=== PATIENT | female | born 1985 | race Caucasian/White ===

== ENCOUNTER 2020-10-09 22:33 | Inpatient (IN) | payer BC ==
[2020-10-10] MEDS ORDERED: SODIUM CHLORIDE 0.9% 500 ML INFUS.BAG IV ONE (01:44)
[2020-10-10] MEDS ORDERED: ACETAMINOPHEN 1000 MG/100 ML VIAL (NON FORMULARY) IVPB ONE (01:44)
[2020-10-10] MEDS ORDERED: MAG HYDROX/AL HYDROX/SIMETH 30 ML UNIT-DOSE CUP PO ONE (01:45)
[2020-10-10] MEDS ORDERED: ACETAMINOPHEN INJECTION 100 ML IVPB ONE (02:43)
[2020-10-10] MEDS ORDERED: MAG HYDROX/AL HYDROX/SIMETH 30 ML UNIT-DOSE CUP ONE (02:43)
[2020-10-10 02:49] LABS: BASO % 0.4 % (0-2.0); EOS % 0.3 % (0-4.5); HEMATOCRIT 42.4 % (32.4-45.2); MCH 28.5 pg (25.7-33.7); MEAN CELL VOLUME 86.3 fl (80-96); MEAN PLT VOLUME 7.3 fl (7.5-11.1); MONO % 7.7 % (3.8-10.2); NEUT % 82.6 % (42.8-82.8); PLATELET COUNT 378 10^3/uL (134-434); RBC 4.92 M/mm3 (3.60-5.2); RDW 14.1 % (11.6-15.6); WHITE BLOOD COUNT 9.9 K/mm3 (4.0-10.0)
[2020-10-10 03:06] LABS: CALCIUM 8.8 mg/dL (8.5-10.1)
[2020-10-10 03:07] LABS: ALBUMIN 3.9 g/dl (3.4-5.0); BLOOD UREA NITROGEN 9.5 mg/dL (7-18)
[2020-10-10 03:12] LABS: BILIRUBIN,TOTAL 0.5 mg/dL (0.2-1); TOT PROT 8.3 g/dl (6.4-8.2)
[2020-10-10 03:23] LABS: CREATININE 0.7 mg/dL (0.55-1.3)
[2020-10-10 03:52] LABS: PH,URINE 5.5 (5.0-8.0); URINE APPEARANCE CLOUDY; URINE BILIRUBIN 1+ (NEGATIVE); URINE COLOR DK YELLOW; URINE GLUCOSE (UA) NEGATIVE (NEGATIVE); URINE KETONE 4+ (NEGATIVE); URINE LEUK ESTERASE NEGATIVE (NEGATIVE); URINE NITRITE NEGATIVE (NEGATIVE); URINE PROTEIN TRACE (NEGATIVE)
[2020-10-10 03:54] LABS: EPI CELLS >36 /uL (0-25.1); HYALINE CASTS 5 /uL (0-3.1); URINE BACTERIA 634 /uL (0-1359); URINE RBC 12 /uL (0-23.9); URINE WBC 38 /uL (0-25.8)
[2020-10-10] MEDS ORDERED: ONDANSETRON 4 MG/2 ML VIAL IVPUSH PRN (10:01)
[2020-10-10] MEDS: SODIUM CHLORIDE 1,000 ML IV SCH ×2 (10:28→17:00)
[2020-10-10] MEDS: ENOXAPARIN NA (PORCINE) 40 MG/0.4 ML DISP.SYRIN SQ SCH (10:28)
[2020-10-10 12:51] VITALS: BMI 85.2
[2020-10-10] MEDS ORDERED: ACETAMINOPHEN 1000 MG/100 ML VIAL (NON FORMULARY) IVPB PRN (12:58)
[2020-10-10] MEDS: SPIRONOLACTONE 25 MG TABLET PO SCH (15:07)
[2020-10-10] MEDS ORDERED: cefTRIAXone SODIUM 1 GM VIAL ONE (20:14)
[2020-10-10] MEDS ORDERED: DEXTROSE 5%-WATER - 50 ML IVPB ONE (20:14)
[2020-10-10] MEDS: CEFTRIAXONE 1 GM in DEXTROSE 5%-WATER - 50 ML IVPB SCH (20:54)
[2020-10-11] MEDS: SODIUM CHLORIDE 1,000 ML IV SCH ×3 (06:48→23:36)
[2020-10-11 09:46] LABS: BASO % 0.2 % (0-2.0); EOS % 0.4 % (0-4.5); HEMATOCRIT 38.3 % (32.4-45.2); HEMOGLOBIN 12.4 GM/dL (10.7-15.3); LYMPH % 14.5 % (8-40); MCH 28.1 pg (25.7-33.7); MCHC 32.3 g/dl (32.0-36.0); MEAN CELL VOLUME 86.9 fl (80-96); MEAN PLT VOLUME 7.9 fl (7.5-11.1); MONO % 14.4 % (3.8-10.2); NEUT % 70.5 % (42.8-82.8); PLATELET COUNT 322 10^3/uL (134-434); RBC 4.41 M/mm3 (3.60-5.2); RDW 13.7 % (11.6-15.6); WHITE BLOOD COUNT 6.9 K/mm3 (4.0-10.0)
[2020-10-11 10:30] LABS: BLOOD UREA NITROGEN 3.1 mg/dL (7-18); CALCIUM 7.6 mg/dL (8.5-10.1)
[2020-10-11 10:31] LABS: PHOSPHOROUS 2.2 mg/dL (2.5-4.9)
[2020-10-11 10:32] LABS: BILIRUBIN,TOTAL 0.5 mg/dL (0.2-1); TOT PROT 6.3 g/dl (6.4-8.2)
[2020-10-11 10:33] LABS: CREATININE 0.5 mg/dL (0.55-1.3)
[2020-10-11] MEDS ORDERED: cefTRIAXone SODIUM 1 GM VIAL ONE (11:19)
[2020-10-11] MEDS ORDERED: DEXTROSE 5%-WATER - 50 ML IVPB ONE (11:19)
[2020-10-11] MEDS: SPIRONOLACTONE 25 MG TABLET PO SCH ×2 (11:22→13:09)
[2020-10-11] MEDS: CEFTRIAXONE 1 GM in DEXTROSE 5%-WATER - 50 ML IVPB SCH (11:22)
[2020-10-11] MEDS: ENOXAPARIN NA (PORCINE) 40 MG/0.4 ML DISP.SYRIN SQ SCH (11:22)
[2020-10-12] MEDS: ONDANSETRON 4 MG/2 ML VIAL IVPUSH PRN ×2 (04:26→09:53)
[2020-10-12 09:26] LABS: BASO % 0.2 % (0-2.0); EOS % 0.3 % (0-4.5); HEMATOCRIT 38.8 % (32.4-45.2); HEMOGLOBIN 12.4 GM/dL (10.7-15.3); LYMPH % 20.1 % (8-40); MCHC 31.9 g/dl (32.0-36.0); MEAN CELL VOLUME 87.7 fl (80-96); MEAN PLT VOLUME 7.8 fl (7.5-11.1); MONO % 9.2 % (3.8-10.2); NEUT % 70.2 % (42.8-82.8); PLATELET COUNT 323 10^3/uL (134-434); RBC 4.43 M/mm3 (3.60-5.2); RDW 13.6 % (11.6-15.6); WHITE BLOOD COUNT 7.2 K/mm3 (4.0-10.0)
[2020-10-12] MEDS ORDERED: DEXTROSE 5%-WATER - 50 ML IVPB ONE (09:38)
[2020-10-12] MEDS ORDERED: cefTRIAXone SODIUM 1 GM VIAL ONE (09:38)
[2020-10-12] MEDS: CEFTRIAXONE 1 GM in DEXTROSE 5%-WATER - 50 ML IVPB SCH (09:50)
[2020-10-12 09:52] LABS: CALCIUM 7.8 mg/dL (8.5-10.1)
[2020-10-12] MEDS: SODIUM CHLORIDE 1,000 ML IV SCH (09:52)
[2020-10-12] MEDS: ENOXAPARIN NA (PORCINE) 40 MG/0.4 ML DISP.SYRIN SQ SCH (09:52)
[2020-10-12 09:53] LABS: ALBUMIN 2.9 g/dl (3.4-5.0); BLOOD UREA NITROGEN 3.9 mg/dL (7-18); MAGNESIUM 2.1 mg/dL (1.8-2.4)
[2020-10-12 09:56] LABS: CREATININE 0.4 mg/dL (0.55-1.3); PHOSPHOROUS 2.7 mg/dL (2.5-4.9)
[2020-10-12 09:58] LABS: BILIRUBIN,TOTAL 0.7 mg/dL (0.2-1); TOT PROT 6.4 g/dl (6.4-8.2)
[2020-10-12] MEDS: DEXTROSE 5%-LACTATED RINGERS 1,000 ML IV SCH (12:42)
[2020-10-12] MEDS: ONDANSETRON 4 MG/2 ML VIAL IVPB SCH ×2 (16:12→20:32)
[2020-10-12 23:07] LABS: HEP B CORE AB, TOT Negative (Negative)
[2020-10-13] MEDS: ONDANSETRON 4 MG/2 ML VIAL IVPB SCH ×2 (00:43→04:15)
[2020-10-13] MEDS: DEXTROSE 5%-LACTATED RINGERS 1,000 ML IV SCH (04:56)
[2020-10-13] MEDS ORDERED: ONDANSETRON 4 MG/2 ML VIAL IVPB PRN (07:45)
[2020-10-13] MEDS ORDERED: DIPHENOXYLATE 2.5/ATROPINE.025 1 COMBO TABLET PO PRN (08:31)
[2020-10-13] MEDS ORDERED: DEXTROSE 5%-WATER - 50 ML IVPB ONE (09:03)
[2020-10-13] MEDS ORDERED: cefTRIAXone SODIUM 1 GM VIAL ONE (09:03)
[2020-10-13 09:11] LABS: CHLORIDE 110 mmol/L (98-107); SODIUM 138 mmol/L (136-145)
[2020-10-13 09:15] LABS: CALCIUM 8.1 mg/dL (8.5-10.1)
[2020-10-13 09:17] LABS: ANION GAP 7 MMOL/L (8-16); CO2 21 mmol/L (21-32); GLUCOSE,RANDOM 109 mg/dL (74-106)
[2020-10-13 09:19] LABS: CREATININE 0.5 mg/dL (0.55-1.3); SGOT/AST 65 U/L (15-37); SGPT/ALT 108 U/L (13-61)
[2020-10-13 09:20] LABS: BILIRUBIN,TOTAL 0.6 mg/dL (0.2-1); PHOSPHOROUS 1.4 mg/dL (2.5-4.9); TOT PROT 6.6 g/dl (6.4-8.2)
[2020-10-13 09:21] LABS: ALK PHOS 140 U/L (45-117); BLOOD UREA NITROGEN 1.6 mg/dL (7-18)
[2020-10-13] MEDS: CEFTRIAXONE 1 GM in DEXTROSE 5%-WATER - 50 ML IVPB SCH (09:23)
[2020-10-13] MEDS: ENOXAPARIN NA (PORCINE) 40 MG/0.4 ML DISP.SYRIN SQ SCH (09:23)
[2020-10-13] MEDS ORDERED: POTASSIUM PHOSPHATE 30 MM in DEXTROSE 5%-WATER - 500 ML IVPB ONE (13:00)
[2020-10-13] MEDS ORDERED: MORPHINE SULFATE 2 MG/ML VIAL IVPUSH PRN (16:50)
[2020-10-13] MEDS ORDERED: MELATONIN 5 MG TABLETS PO PRN (16:57)
[2020-10-14] MEDS: DEXTROSE 5%-LACTATED RINGERS 1,000 ML IV SCH (00:28)
[2020-10-14 09:15] LABS: BASO % 0.8 % (0-2.0); EOS % 1.6 % (0-4.5); HEMATOCRIT 38.6 % (32.4-45.2); HEMOGLOBIN 12.7 GM/dL (10.7-15.3); LYMPH % 33.2 % (8-40); MCH 28.3 pg (25.7-33.7); MCHC 33.1 g/dl (32.0-36.0); MEAN CELL VOLUME 85.6 fl (80-96); MEAN PLT VOLUME 8.2 fl (7.5-11.1); MONO % 11.3 % (3.8-10.2); NEUT % 53.1 % (42.8-82.8); PLATELET COUNT 359 10^3/uL (134-434); RBC 4.51 M/mm3 (3.60-5.2); RDW 14.1 % (11.6-15.6); WHITE BLOOD COUNT 6.2 K/mm3 (4.0-10.0)
[2020-10-14 09:48] LABS: CHLORIDE 110 mmol/L (98-107); SODIUM 141 mmol/L (136-145)
[2020-10-14 10:09] LABS: ALBUMIN 3.1 g/dl (3.4-5.0); ANION GAP 6 MMOL/L (8-16); CALCIUM 8.6 mg/dL (8.5-10.1); CO2 25 mmol/L (21-32); GLUCOSE,RANDOM 104 mg/dL (74-106)
[2020-10-14 10:10] LABS: MAGNESIUM 1.9 mg/dL (1.8-2.4)
[2020-10-14 10:13] LABS: CREATININE 0.5 mg/dL (0.55-1.3); SGOT/AST 110 U/L (15-37); SGPT/ALT 146 U/L (13-61)
[2020-10-14 10:14] LABS: BILIRUBIN,TOTAL 0.2 mg/dL (0.2-1); PHOSPHOROUS 2.4 mg/dL (2.5-4.9)
[2020-10-14 10:15] LABS: TOT PROT 6.6 g/dl (6.4-8.2)
[2020-10-14 10:16] LABS: ALK PHOS 123 U/L (45-117)
[2020-10-14] MEDS ORDERED: cefTRIAXone SODIUM 1 GM VIAL ONE (10:20)
[2020-10-14] MEDS ORDERED: DEXTROSE 5%-WATER - 50 ML IVPB ONE (10:20)
[2020-10-14 10:23] LABS: BLOOD UREA NITROGEN 2.6 mg/dL (7-18)
[2020-10-14] MEDS: ENOXAPARIN NA (PORCINE) 40 MG/0.4 ML DISP.SYRIN SQ SCH (10:32)
[2020-10-14] MEDS: CEFTRIAXONE 1 GM in DEXTROSE 5%-WATER - 50 ML IVPB SCH (10:32)
[2020-10-14] MEDS ORDERED: NAPH,MB-DB/K PH,MBDB POWDER PACKET PO ONE (11:29)
[2020-10-14] MEDS ORDERED: NAPH,MB-DB/K PH,MBDB POWDER PACKET PO SCH (14:00)
[2020-10-14 15:22] VITALS: BP 108/54; PULSE 74; TEMP 98
== END 2020-10-14 18:36 | disposition home or self-care (01) | DRG 392 ==
LOC: JER 22:33 → UNDOADMOB 10-10 05:57 → INTOOBSV 10-10 05:57 → JERBED 10-10 05:57 → J5S 10-10 11:28 → JERBED 10-10 11:28 → J5S 10-10 11:39 → OBSVTOIN 10-10 18:42 → JERBED 10-10 18:42
PROVIDERS: ATTEND Student in an Organized Health Care Education/Training Program
DX: A09 Infectious gastroenteritis and colitis, unspecified (principal); K65.4 Sclerosing mesenteritis; Z68.45 Body mass index [BMI] 70 or greater, adult; E66.01 Morbid (severe) obesity due to excess calories; E78.5 Hyperlipidemia, unspecified; E66.9 Obesity, unspecified; R94.5 Abnormal results of liver function studies; E86.0 Dehydration; N83.202 Unspecified ovarian cyst, left side; N83.201 Unspecified ovarian cyst, right side; K76.0 Fatty (change of) liver, not elsewhere classified; Z87.19 Personal history of other diseases of the digestive system
CPT/HCPCS: 36415; 74177-TC; 76705-TC; 80053; 81003; 83516; 83690; 83735; 83993; 84100; 84703; 85025; 85651; 86140; 86704; 86706; 86707; 86708; 86709; 86803; 87045; 87046; 87086; 87324; 87340; 87449; 93005; 93010; 99285-25; C9803; J0131; Q9967; U0003; U0005